=== PATIENT | female | born 1985 | race Two or more races ===

== ENCOUNTER 2024-08-31 08:26 | Emergency (ER) | payer MEDICAID, SELFPAY ==
--- NOTE | 2024-08-31 08:32 | XR_ITS ---
Examination: OB Transvaginal ultrasound of the pelvis, complete Technique: Transvaginal sonographic images pelvis performed using head scale imaging Exam date and time: August 31, 2024 0855 hours INDICATIONS: Vaginal bleeding beginning yesterday, early by history, lower back pain 4 days FINDINGS: Uterus 9.2 x 4.6 x 5.0 cm Endometrial stripe 0.9 cm No intrauterine gestation Right ovary 3.1 x 1.9 x 1.9 cm arterial flow to millimeters follicular cyst Left ovary 2.3 x 1.5 x 1.7 cm arterial flow No fluid in the cul-de-sac IMPRESSION: No intrauterine gestation No retained products of conception Recommend short-term follow-up transvaginal pelvic sonography as clinically warranted.
[2024-08-31 08:43] VITALS: BP 150/96; PULSE 66; RESP 16; TEMP 36.9; O2SAT 100; BMI 27.1
[2024-08-31 09:01] LABS: Basophils % (Auto) 0 % (0-2.5); Eosinophils # (Auto) 0.2 Thou/mm3 (0.0-0.5); Eosinophils % (Auto) 2 % (0-10); Hematocrit 40.4 % (36.0-46.0); Hemoglobin 14.9 g/dL (12.0-16.0); Immature Granulocytes % (Auto) 0 % (0-0); Immature Granulocytes Auto 0.01 Thou/mm3 (0.00-0.00); Lymphocytes # (Auto) 1.7 Thou/mm3 (1.0-4.8); Lymphocytes % (Auto) 23 % (10-50); Mean Corpuscular HGB Conc 36.9 g/dl (31.0-37.0); Mean Corpuscular Hemoglobin 33.9 pg (25.0-35.0); Mean Corpuscular Volume 92 fL (80-100); Monocytes # (Auto) 0.6 Thou/mm3 (0.0-0.8); Monocytes % (Auto) 8 % (0-12); Neutrophils # (Auto) 5.1 Thou/mm3 (1.8-7.7); Neutrophils % (Auto) 67 % (37-80); Nucleated Red Blood Cell % 0 /100 WBC (0); Platelet Count 279 Thou/mm3 (140-440); RDW Standard Deviation 41.9 fL (36.4-46.3); Red Blood Count 4.39 Miln/mm3 (4.00-5.20); White Blood Count 7.6 Thou/mm3 (3.6-11.0)
[2024-08-31 09:53] LABS: Alanine Aminotransferase 15 U/L (10-49); Albumin, Serum 4.9 gm/dL (3.5-5.0); Alkaline Phosphatase 60 U/L (46-116); Anion Gap 9 (7-16); Aspartate Amino Transferase 11 U/L (0-34); BUN/Creatinine Ratio 17 Ratio (12-20); Beta HCG,Quantitative 3385 mIU/mL (<5.0); Bilirubin,Total 0.7 mg/dL (0.3-1.2); Blood Urea Nitrogen 10 mg/dL (9-23); Calcium 9.7 mg/dL (8.3-10.6); Calcium (Corrected) 9.7 mg/dL (8.5-10.1); Carbon Dioxide 25.4 mMol/L (20.0-31.0); Chloride 107 mMol/L (98-107); Creatinine (Component) 0.6 mg/dL (0.6-1.3); Estimated Creatinine Clearance 124.6 mL/min (>60); Globulin 2.4 gm/dL (2.3-3.5); Glucose 108 mg/dL (74-106); Osmolality,Calculated 281 (275-295); Sodium 141 mMol/L (136-145); Total Protein 7.3 gm/dL (5.7-8.2); eGFR > 60 See Note
--- NOTE | 2024-08-31 10:04 | EDNOTE_ITS ---
<Statement entered by Lorna Shaw MD - 09/01/24 09:17> As co-signing physician, I was present and available for consult prn. I concur with the plan and care as documented by the midlevel provider. ED Female Urogenital RME/HPI General Chief complaint: Urogenital-Female Stated complaint: MISSCARRIAGE YESTERDAY, NEEDS ULTRASOUND Time Seen by Provider: 08/31/24 08:32 Arrival date/time: 08/31/24 08:26 39-year-old female presents emergency department today stating that she believes she had a miscarriage yesterday patient requesting ultrasound patient was seen in the clinic yesterday and referred to the ER Limitations: no limitations Related Data Allergies Allergy/AdvReac Type Severity Reaction Status Date / Time No Known Allergies Allergy Verified 08/31/24 08:29 Review of Systems Review of Systems Systems Reviewed: All systems reviewed, normal except as documented Constitutional Constitutional: Reports system reviewed and no additional complaints, except as documented, Denies fever(s) and Denies headache(s) Eyes Eyes: Reports system reviewed and no additional complaints, except as documented and Denies blurry vision ENT Ears, Nose, Mouth, and Throat: Reports system reviewed and no additional complaints, except as documented, Denies headache(s), Denies nasal congestion and Denies nasal discharge Cardiovascular Cardiovascular: Reports system reviewed and no additional complaints, except as documented, Denies chest pain and Denies dyspnea Respiratory Respiratory: Reports system reviewed and no additional complaints, except as documented, Denies chest congestion, Denies cough and Denies dyspnea Gastrointestinal Gastrointestinal: Reports system reviewed and no additional complaints, except as documented and Denies abdominal pain Genitourinary Genitourinary: Reports system reviewed and no additional complaints, except as documented and Reports abnormal vaginal bleeding Integumentary/Breasts Skin/Breast: Reports system reviewed and no additional complaints, except as documented and Denies rash Neurologic Neurologic: Reports system reviewed and no additional complaints, except as documented, Reports as per HPI and Denies headache(s) Past Medical History Past Medical History NEUROLOGIC: Negative Neurological Disorders CARDIAC: Negative Cardiac Disorders ED Exam General Limitations: Present no limitations General appearance: Present alert and in no apparent distress Head Head exam: Present atraumatic, normocephalic and normal inspection Eye Eye exam: Present normal appearance, PERRL and EOMI; Absent conjunctival injection ENT ENT exam: Present normal exam, normal oropharynx and mucous membranes moist Neck Neck exam: Present normal inspection, full ROM and trachea midline Chest Chest inspection: Present normal inspection and symmetric chest wall rise Respiratory Respiratory exam: Present normal lung sounds bilaterally; Absent respiratory distress Cardiovascular Cardiovascular exam: Present regular rate, normal rhythm and normal heart sounds Abdominal Exam Abdominal exam: Present soft and normal bowel sounds; Absent distention, tenderness, guarding, rebound or rigidity Extremities Exam Extremities exam: Present normal inspection and full ROM Back Exam Back exam: Present normal inspection and full ROM Neurological Exam Neurological exam: Present alert, oriented X3 and CN II-XII intact Psychiatric Psychiatric exam: Present normal affect and normal mood Skin Skin exam: Present warm, dry, intact and normal color Course Quality Measures none Orders Category Date Time Status US OB transvaginal Stat Exams 08/31/24 08:32 Completed ABO/RH Type Stat Lab 08/31/24 08:35 Completed Beta HCG,Quantitative Stat Lab 08/31/24 08:35 Completed CBC Stat Lab 08/31/24 08:35 Completed Comprehensive Metabolic Panel Stat Lab 08/31/24 08:35 Completed Vital Signs Vital signs: Vital Signs Temperature 98.4 F 08/31/24 08:43 Pulse Rate 66 08/31/24 08:43 Respiratory Rate 16 08/31/24 08:43 Blood Pressure 150/96 H 08/31/24 08:43 Pulse Oximetry (%) 100 08/31/24 08:43 Oxygen Delivery Method Room Air 08/31/24 08:43 O2 saturation 100% room air within normal limits Urogenital - Female MDM Narrative MDM Narrative:: 39-year-old female presents emergency department today stating that she believes she had a miscarriage yesterday patient requesting ultrasound patient was seen in the clinic yesterday and referred to the ER On exam patient well-appearing patient does not appear ill or toxic patient not appear in acute distress patient is soft nontender abdomen Patient reports no active bleeding patient reports passing clots yesterday Lab work and ultrasound obtained lab work does confirm ultrasound negative for I explained to the patient she needs to have repeat hCG levels and follow-up with [facility] for worsening symptoms return immediately For heavy bleeding or significant pain patient struck to return to the ER immediately for further evaluation Patient data External records reviewed:: [facility] previous records Clinical information provided by:: patient Social determinants that could affect healthcare access:: none Patient has the following chronic illnesses:: None How is presenting disease/condition affected by chronic disease/condition?: no chronic disease Evaluation data The following diagnostics were reviewed and interpreted by me:: lab results and radiology exam(s) Lab and/or radiology exams considered but not ordered:: Labs and radiology obtained Interpretation Summary: Reviewed by me Medications / Prescriptions Medications or Prescriptions considered but not ordered:: Given no meds Medication administrations:: No meds Consultations Consultation(s) initiated? (list below): No Diagnosis Urogenital Female Differential Diagnosis: urinary tract infection, cystitis and other (Threatened , missed ) Most likely diagnosis given after review of the tests above:: Missed Admission Indicated Admission indicated?: not indicated Admission Request Was there a request for admission?: No Disposition Plan Disposition Plan: Discharge Discharge Attestation Discharge Attestation: The patient and all family members were given an opportunity to ask questions and understood the discharge instructions. Discharge instructions specifically effects, indications for sooner follow up or return to the emergency department, and the expected course of current diagnosis. Patient condition: Stable Discharge Plan Plan Patient Disposition: HOME (Self Care) Disposition Comment: Stable Prescriptions/Referrals Referrals: No Primary/Family,Physician [Primary Care Provider] - 09/03/24 Problem List Clinical Impression: , threatened Patient/Caregiver Discharge Instructions Education Materials: ED Possible Miscarriage ... Additional Instructions: Please follow-up with [facility] as discussed for worsening symptoms return immediately Today her hCG level is 3385 you need to have repeat lab work in 3 to 4 days Print Language: Azeri Stand Alone Forms: Anjelica Award Info., Work/School Release, Patient Portal Info Letter AIDA/GERARDO Supervising Physician AIDA/GERARDO Supervising Physician: Dr. SHAW
== END 2024-08-31 10:03 | disposition home or self-care (01) ==
PROVIDERS: Nurse Practitioner Primary Care; Emergency Provider Emergency Medicine
DX: O20.0 Threatened abortion (principal); Z3A.00 Weeks of gestation of pregnancy not specified
CPT/HCPCS: 36415; 76817; 80053; 84702; 85025; 86900; 86901; 99284